=== PATIENT | female | born 1930 | race Caucasian/White ===

== ENCOUNTER 2018-04-24 12:04 | Emergency (ER) | payer OTHER, MEDICARE ==
--- NOTE | 2018-04-24 12:06 | PDOC ---
History of Present Illness - General Chief Complaint: Injury Stated Complaint: LOWER BACK PAIN - History of Present Illness Initial Comments: 04/24/18 12:23 87yo female presents with her for eval of LBP after a fall wednesday in her kitchen. Pt states there was water on the floor and she wasn't wearing shoes. States she slipped and landed on buttock region. Denies hitting her head. Denies loc. Denies pain down the legs. Denies paresthesias. C/o L low back pain. 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 Pt with a hx of LBP that has been a problem for "a long time". Pt states she took motrin 800mg and tylenol arthritis for pain this AM without relief. States she has been able to ambulate with her cane at home. States her had to help her off the floor. Pt denies saddle paresthesias. No loss of control of bowel or bladder. No f/c. No LE paresthesias or weakness. No signs/symptoms of caude equina. Pt denies cp/ sob. Treated 2 weeks ago for a UTI, but denies dysuria at this time. No hematuria. No other complaints. PMHx: HLD, chronic LBP PSHx: hip replacement (L) Allergies: NKDA Home meds: crestor, motrin, tylenol 04/24/18 13:05 Past History - Past Medical History Allergies/Adverse Reactions: Allergies Allergy/AdvReac Type Severity Reaction Status Date / Time No Known Allergies Allergy Verified 04/24/18 12:05 Home Medications: Ambulatory Orders Rosuvastatin Calcium [Crestor] 1 tab PO DAILY 05/19/14 Cephalexin [Keflex] 500 mg PO BID #14 capsule 04/24/18 Ibuprofen 800 mg PO PRN PRN 04/24/18 Ibuprofen [Motrin -] 600 mg PO TID PRN #21 tablet 04/24/18 Oxycodone HCl/Acetaminophen [Percocet 5-325 mg Tablet] 1 tab PO Q6H PRN #10 tablet MDD 4 tabs a day 04/24/18 GI Disorders: Yes (LOOSE STOOLS) Hypercholesterolemia: Yes - Suicide/Smoking/Psychosocial Hx Smoking History: Never smoked Have you smoked in the past 12 months: No Hx Alcohol Use: No Drug/Substance Use Hx: No Substance Use Type: None Review of Systems - Review of Systems Able to Perform ROS?: Yes Is the patient limited Lebanese proficient: No Constitutional: No: Chills, Fever HEENTM: No: Blurred Vision, Nose Congestion, Throat Pain Respiratory: No: Cough, Shortness of Breath Cardiac (ROS): No: Chest Pain ABD/GI: No: Diarrhea, Nausea, Vomiting, Abdominal cramping : No: Burning, Dysuria, Hematuria, Incontinence Musculoskeletal: Yes: Back Pain, Joint Pain Integumentary: No: Rash Neurological: No: Headache, Numbness, Paresthesia, Tingling, Weakness, Unsteady Gait, Ataxia All Other Systems: Reviewed and Negative *Physical Exam - Vital Signs 04/24/18 13:00 Selected Entries 04/24/18 12:05 Temperature 98.6 F Pulse Rate 97 H Respiratory 20 Rate Blood Pressure 154/99 Blood Pressure 117 Mean O2 Sat by Pulse 96 Oximetry (%) Weight 72.575 kg - Physical Exam General Appearance: Yes: Nourished, Appropriately Dressed, Apparent Distress HEENT: positive: EOMI, Pharynx Normal Neck: positive: Trachea midline, Supple. negative: Rigid, Tender midline Respiratory/Chest: positive: Lungs Clear, Normal Breath Sounds. negative: Respiratory Distress Cardiovascular: positive: Regular Rhythm, Regular Rate, S1, S2 Gastrointestinal/Abdominal: positive: Normal Bowel Sounds, Flat, Soft. negative : Tender, Guarding, Rebound Musculoskeletal: positive: Normal Inspection, Other (no midline ttp of C/T/L spine. L lateral paraspinal ttp, no ecchymosis, L SI joint TTP). negative: CVA Tenderness, Vertebral Tenderness Extremity: positive: Normal Capillary Refill, Normal Inspection, Normal Range of Motion, Pelvis Stable. 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 NML intact, Fully Oriented, Alert, Motor Strength 5/5 Medical Decision Making - Medical Decision Making 04/24/18 13:15 a/p: 87yo female with LBP after a mechanical fall wednesday -no head injury -no midline spinal ttp -neuro intact -L lateral low back ttp -pt appears uncomfortable -will obtain xrays -will medicate for pain/muscle spasm from fall 04/24/18 13:16 xray shows old L1 fx similar to 2016 xray, no new changes compared to 2016 - pending radiology official read 04/24/18 13:26 official read shows a new compression fracture of L3 discussed with the patient and her family the option of discussing surgical options for pain control with neurosx discussed with the patient and her family the old L1 compression fracture and the new L3 compression fx discussed staying in the hospital for pain control with the family pt states she wants to try outpt pain control and will take referral for spine surgery as outpt pt currently giving urine sample 04/24/18 15:48 pt also with a UTI will start keflex *DC/Admit/Observation/Transfer Diagnosis at time of Disposition: Back pain, Vertebral compression fracture, UTI (urinary tract infection) - Discharge Dispostion Disposition: HOME Condition at time of disposition: Stable Decision to Admit order: No - Prescriptions Prescriptions: Cephalexin [Keflex] 500 mg PO BID #14 capsule Ibuprofen [Motrin -] 600 mg PO TID PRN #21 tablet PRN Reason: Pain Oxycodone HCl/Acetaminophen [Percocet 5-325 mg Tablet] 1 tab PO Q6H PRN #10 tablet MDD 4 tabs a day PRN Reason: Pain - Referrals Referrals: Cesario Salazar MD, [facility] [Staff Physician] - - Patient Instructions Printed Discharge Instructions: DI for Vertebral Fracture, How to Prevent Falls , DI for Urinary Tract Infection (UTI) Additional Instructions: Please take all medications as prescribed. Please make an appointment to see your PMD and the spine surgeon this week. Please return to the ED if the pain worsens or you have any leg weakness or incontinence. Please do not drive or operate heavy machinery while taking the percocet. Please take the motrin with food or milk. Percocet can make you sleepy. Percocet can also make you constipated. - Post Discharge Activity - Attestations Physician Attestion: 04/24/18 14:33 I, Dr. Joyce Martinez, DO, attest that this document has been prepared under my direction and personally reviewed by me in its entirety. I further attest, that it accurately reflects all work, treatment, procedures and medical decision -making performed by me.
[2018-04-24 12:28] VITALS: BP 154/99; PULSE 97; TEMP 98.6; BMI 26.6
[2018-04-24] MEDS ORDERED: CYCLOBENZAPRINE HCL 10 MG TABLET (FP) PO ONE (13:00)
[2018-04-24] MEDS ORDERED: CYCLOBENZAPRINE HCL 10 MG TABLET (FP) ONE (13:09)
[2018-04-24 15:37] LABS: PH,URINE 5.5 (4.5-8); URINE BILIRUBIN Negative (NEGATIVE); URINE GLUCOSE (UA) Negative (NEGATIVE); URINE KETONE Negative (NEGATIVE); URINE NITRITE Positive (NEGATIVE); URINE PROTEIN Trace (NEGATIVE); URINE UROBILINOGEN 0.2 (0.2-1.0)
[2018-04-24 15:39] LABS: URINE APPEARANCE SL CLOUDY; URINE COLOR YELLOW; URINE LEUK ESTERASE 3+ (NEGATIVE)
[2018-04-24 15:48] LABS: AMORP URATES FEW /hpf (NONE SEEN); EPI CELLS MODERATE /HPF; URINE BACTERIA MODERATE /hpf (NEGATIVE); URINE WBC 20-40 (0-5)
[2018-04-24] MEDS ORDERED: CEPHALEXIN MONOHYDRATE 500 MG CAPSULE (UD) PO ONE (15:48)
[2018-04-24] MEDS ORDERED: CEPHALEXIN MONOHYDRATE 500 MG CAPSULE (UD) ONE (16:01)
== END 2018-04-24 16:05 | disposition home or self-care (01) ==
LOC: FER 12:04
DX: M54.5 Low back pain (principal); S32.009A Unspecified fracture of unspecified lumbar vertebra, initial encounter for closed fracture; W01.0XXA Fall on same level from slipping, tripping and stumbling without subsequent striking against object, initial encounter; Y93.89 Activity, other specified; Y92.9 Unspecified place or not applicable; N39.0 Urinary tract infection, site not specified; I95.9 Hypotension, unspecified
CPT/HCPCS: 72100-TC-FY; 72170-TC-FY; 81003; 81015; 99282-25